=== PATIENT | female | born 1970 | race Caucasian/White ===

== ENCOUNTER → 2020-11-18 | Outpatient (CLI) | payer OTHER ==
--- NOTE | 2020-11-18 13:34 | RAD ---
XR EXAM OF ANKLE_LEFT 3V, XR FOOT_LEFT 3 VIEWS DATE: 11/18/2020 11:03 AM INDICATION: LEFT FOOT AND ANKLE PAIN COMPARISON: None. FINDINGS: Bones: There is no evidence of acute fracture or dislocation. Tiny plantar calcaneal enthesophyte. Joints: The joint spaces are normal. Miscellaneous: None. IMPRESSION: No evidence of acute ankle or foot fracture. Electronically signed by: Chadd Barry MD (11/18/2020 1:31 PM) [id number]
== END ==
LOC: RAD 10:57
PROVIDERS: ATTEND Physician Assistant
DX: M77.32 Calcaneal spur, left foot (principal)
CPT/HCPCS: 73610; 73630